=== PATIENT | male | born 1965 | race American Indian/Alaskan Native ===

== ENCOUNTER 2016-11-17 18:03 | Emergency (ER) | payer MEDICARE ==
--- NOTE | 2016-11-17 18:20 | Emergency Department Report ---
Stated Complaint: LEFT LEG NUMBNESS Time Seen by Provider: 11/17/16 18:18 - HPI History of Present Illness: PT c/o Left leg pain x 3 days. PT's bp has also been elevated. PT has hx of clot. PT states he went to yesterday and he was told to go to ED for eval of leg pain. - ROS Review of Systems: - chest pain - sob - Exam Vital Signs: Vital Signs 11/17/16 18:17 Temperature 98.7 F Pulse Rate 109 H Respiratory 18 Rate Blood Pressure 175/117 O2 Sat by Pulse 98 Oximetry Physical Exam: PT ambulatory with limp in triage no focal weakness noted. MSE screening note: Focused history and physical exam performed. Due to findings the following was ordered: labs ED Disposition for MSE Condition: Stable
[2016-11-17 19:58] LABS: Eosinophils % (Auto) 0.5 % (0.0-4.3); Hematocrit 45.6 % (35.5-45.6); Hemoglobin 15.5 gm/dl (11.8-15.2); Mean Corpuscular HGB Conc 34 % (32-34); Mean Corpuscular Hemoglobin 31 pg (28-32); Mean Corpuscular Volume 91 fl (84-94); Platelet Count 261 K/mm3 (140-440); Red Cell Distribution Width 14.6 % (13.2-15.2); White Blood Count 6.6 K/mm3 (4.5-11.0)
[2016-11-17 20:08] LABS: INR 0.91 (0.87-1.13)
[2016-11-17 20:09] LABS: Partial Thromboplastin Time 30.6 Sec. (24.2-36.6)
[2016-11-17 20:18] LABS: Alanine Aminotransferase 38 units/L (7-56); Albumin 4.4 g/dL (3.9-5); Alkaline Phosphatase 73 units/L (35-129); Anion Gap 21 mmol/L; Blood Urea Nitrogen 16 mg/dL (9-20); Calcium 9.5 mg/dL (8.4-10.2); Carbon Dioxide 21 mmol/L (22-30); Chloride 100.3 mmol/L (98-107); Creatine Kinase 143 units/L (55-170); Glucose 102 mg/dL (75-100); Potassium 3.9 mmol/L (3.6-5.0); Sodium 138 mmol/L (137-145); Total Protein 8.7 g/dL (6.3-8.2)
[2016-11-17 23:11] VITALS: BP 171/116
== END 2016-11-17 23:40 | disposition left against medical advice (07) ==
LOC: ED 18:03
DX: M79.605 Pain in left leg (principal); R20.0 Anesthesia of skin; Z53.21 Procedure and treatment not carried out due to patient leaving prior to being seen by health care provider
CPT/HCPCS: 36415; 80053; 82550; 84484; 85025; 85610; 85730; 93005; 93010

== ENCOUNTER 2016-12-09 08:10 | Emergency (ER) | payer SELFPAY ==
[2016-12-09 09:05] LABS: Basophils % (Auto) 1.4 % (0.0-1.8); Eosinophils % (Auto) 1.2 % (0.0-4.3); Hematocrit 40.5 % (35.5-45.6); Hemoglobin 13.7 gm/dl (11.8-15.2); Mean Corpuscular HGB Conc 34 % (32-34); Mean Corpuscular Hemoglobin 31 pg (28-32); Mean Corpuscular Volume 92 fl (84-94); Platelet Count 224 K/mm3 (140-440); White Blood Count 5.6 K/mm3 (4.5-11.0)
[2016-12-09 09:20] LABS: Anion Gap 18 mmol/L; BUN/Creatinine Ratio 19; Blood Urea Nitrogen 15 mg/dL (9-20); Calcium 8.8 mg/dL (8.4-10.2); Carbon Dioxide 22 mmol/L (22-30); Chloride 105.2 mmol/L (98-107); Glucose 107 mg/dL (75-100); Sodium 141 mmol/L (137-145)
[2016-12-09 09:30] LABS: INR 0.87 (0.87-1.13)
[2016-12-09] MEDS ORDERED: MORPHINE IV ONE (10:35)
[2016-12-09] MEDS ORDERED: CATAPRES PO ONE (10:35)
[2016-12-09] MEDS ORDERED: ZOFRAN IV ONE (10:35)
--- NOTE | 2016-12-09 10:41 | Emergency Department Report ---
HPI - General Chief Complaint: High BP Time Seen by Provider: 12/09/16 10:17 - HPI HPI: Room 1 The patient is a 51-year-old male presenting with a chief complaint of headache. Patient states for the past 2 days he's had a constant diffuse headache. The patient states this morning at 01:00 he checked his blood pressure at home and felt systolic of greater than 200. The patient states he went to [facility] his blood pressure was found to be 183 systolic. The patient states he took 0.2 clonidine at approximately 02:00 this morning but his headache persists. Patient gives his headache score greater than 10/10. Patient denies any preceding trauma Location: Head Duration: 2 Days Quality: Aching Severity: Greater than 10/10 Modifying factors: [see above] Context: [see above] Mode of transportation: [not driving] ED Past Medical Hx - Past Medical History Previous Medical History?: Yes Hx Hypertension: Yes Hx Heart Attack/AMI: Yes (2011 [place] post dvt secondary to Factor V leiden def. No symptoms since stent) Hx Deep Vein Thrombosis: Yes (legs) Hx Pulmonary Embolism: Yes (05/2011) Hx Kidney Stones: Yes (2001) Additional medical history: Factor V Leiden - Surgical History Hx Coronary Stent: Yes (x3) Hx Cholecystectomy: Yes Additional Surgical History: Left external iliac pain. angioplasty and stent 3. IVF filter placed and removed. - Family History Family history: no significant - Social History Smoking Status: Former Smoker Substance Use Type: None - Medications Home Medications: Home Medications Medication Instructions Recorded Confirmed Last Taken Type Aspirin [Aspirin BABY CHEW TAB] 81 mg PO QDAY #30 tab.chew 12/04/12 09/22/15 Rx Hydrochlorothiazide [HCTZ] 12.5 mg PO QDAY #30 tablet 01/23/15 09/22/15 Rx Rosuvastatin (Nf) [Crestor] 10 mg PO QHS #30 tablet 01/23/15 09/22/15 09/21/15 Rx Zolpidem [Ambien] 5 mg PO QHS PRN #15 tablet 01/23/15 09/22/15 09/21/15 Rx Famotidine [Pepcid] 20 mg PO BID PRN 05/07/15 09/22/15 Unknown History ALPRAZolam [Xanax TAB] 1 mg PO TID PRN 09/22/15 09/22/15 Unknown History Olmesartan/Amlodipin/Hcthiazid 1 each PO QDAY 09/22/15 09/22/15 09/21/15 History [Tribenzor 40-5-12.5 mg] Rivaroxaban [Xarelto] 20 mg PO QDAY #30 tablet 09/24/15 Unknown Rx Rivaroxaban [Xarelto] 20 mg PO QDDIAB #30 tablet 09/24/15 Unknown Rx HYDROcodone/APAP 5-325 [[place] 1 each PO Q6HR PRN #12 tablet 01/19/16 Unknown Rx 5/325] Ibuprofen [Motrin 800 MG tab] 800 mg PO Q8HR PRN #30 tablet 01/19/16 Unknown Rx methOCARBAMOL [Robaxin TAB] 500 mg PO BID #20 tab 01/19/16 Unknown Rx Butalb/Acetamin/Caff 50-325-40 2 tab PO Q8HR PRN #20 tablet 12/09/16 Unknown Rx [Fioricet] ED Review of Systems ROS: Stated complaint: elevated blood pressure Other details as noted in HPI Comment: All other systems reviewed and negative Constitutional: denies: chills, fever Eyes: denies: eye pain, eye discharge, vision change ENT: denies: ear pain, throat pain Respiratory: denies: cough, shortness of breath, wheezing Cardiovascular: denies: chest pain, palpitations Endocrine: no symptoms reported Gastrointestinal: denies: abdominal pain, nausea, diarrhea Genitourinary: denies: urgency, dysuria Musculoskeletal: denies: back pain, joint swelling, arthralgia Skin: denies: rash, lesions Neurological: headache Psychiatric: denies: anxiety, depression Hematological/Lymphatic: denies: easy bleeding, easy bruising Physical Exam - Physical Exam Vital Signs: Vital Signs 12/09/16 12/09/16 12/09/16 08:13 08:40 08:55 Temperature 98.4 F Pulse Rate 95 H 76 Respiratory 18 11 L 16 Rate Blood Pressure 181/111 O2 Sat by Pulse 99 99 Oximetry 12/09/16 12/09/16 12/09/16 08:56 09:01 09:30 Temperature Pulse Rate 85 88 81 Respiratory 18 21 Rate Blood Pressure 162/100 150/102 O2 Sat by Pulse 97 98 Oximetry 12/09/16 10:00 Temperature Pulse Rate 81 Respiratory 13 Rate Blood Pressure 153/98 O2 Sat by Pulse 95 Oximetry Physical Exam: GENERAL: The patient is well-developed well-nourished male lying on stretcher not appearing to be in acute distress. [] HEENT: Normocephalic. Atraumatic. Extraocular motions are intact. Patient has moist mucous membranes. NECK: Supple. No meningitic signs are noted. Trachea midline CHEST/LUNGS: Clear to auscultation. There is no respiratory distress noted. HEART/CARDIOVASCULAR: Regular. There is no tachycardia. There is no gallop rub or murmur. ABDOMEN: Abdomen is soft, nontender. Patient has normal bowel sounds. There is no abdominal distention. SKIN: There is no rash. There is no edema. There is no diaphoresis. NEURO: The patient is awake, alert, and oriented. The patient is cooperative. The patient has no focal neurologic deficits. The patient has normal speech. Cranial nerves II through XII grossly intact, no drift MUSCULOSKELETAL: There is no evidence of acute injury. ED Course Vital Signs 12/09/16 12/09/16 12/09/16 08:13 08:40 08:55 Temperature 98.4 F Pulse Rate 95 H 76 Respiratory 18 11 L 16 Rate Blood Pressure 181/111 O2 Sat by Pulse 99 99 Oximetry 12/09/16 12/09/16 12/09/16 08:56 09:01 09:30 Temperature Pulse Rate 85 88 81 Respiratory 18 21 Rate Blood Pressure 162/100 150/102 O2 Sat by Pulse 97 98 Oximetry 12/09/16 10:00 Temperature Pulse Rate 81 Respiratory 13 Rate Blood Pressure 153/98 O2 Sat by Pulse 95 Oximetry ED Medical Decision Making - Lab Data Result diagrams: 12/09/16 08:48 12/09/16 08:48 Laboratory Tests 12/09/16 12/09/16 12/09/16 08:48 08:48 08:48 WBC 5.6 RBC 4.40 Hgb 13.7 Hct 40.5 MCV 92 MCH 31 MCHC 34 RDW 15.0 Plt Count 224 Lymph % (Auto) 30.1 [place] % (Auto) 6.8 Eos % (Auto) 1.2 Baso % (Auto) 1.4 Lymph # 1.7 [place] # 0.4 Eos # 0.1 Baso # 0.1 Seg Neutrophils % 60.5 Seg Neutrophils # 3.4 PT 12.3 INR 0.87 APTT 28.0 Sodium 141 Potassium 4.0 Chloride 105.2 Carbon Dioxide 22 Anion Gap 18 BUN 15 Creatinine 0.8 Estimated GFR > 60 BUN/Creatinine Ratio 19 Glucose 107 H Calcium 8.8 Troponin T < 0.010 - EKG Data -: EKG Interpreted by Me EKG shows normal: sinus rhythm Rate: normal - EKG Data When compared to previous EKG there are: no significant change Interpretation: unchanged when compared t (09/22/2015) - Radiology Data Radiology results: report reviewed (CT head), image reviewed (CT head) CT head (read by radiologist)-no acute intracranial abnormality - Differential Diagnosis hypertensive emergency, ICH, uncontrolled hypertension, headache Critical care attestation.: If time is entered above; I have spent that time in minutes in the direct care of this critically ill patient, excluding procedure time. ED Disposition Clinical Impression: Headache, Hypertension Disposition: DC- TO HOME OR SELFCARE Is pt being admited?: No Does the pt Need Aspirin: No Condition: Stable Instructions: Hypertension (ED) Additional Instructions: Return to the emergency department immediately should you develop worsening symptoms, fever, inability to tolerate food or liquid or any other concerns. Prescriptions: Butalb/Acetamin/Caff 50-325-40 [Fioricet] 2 tab PO Q8HR PRN #20 tablet PRN Reason: Headache Referrals: PRIMARY CARE, [Primary Care Provider] - 3-5 Days ROZ MCCULLOUGH MD [Staff Physician] - 2-3 Days Time of Disposition: 12:35
--- NOTE | 2016-12-09 12:16 | Cat Scan Report ---
CT scan of head without IV contrast: History: Hypertension, headache. Findings: Ventricles are normal in size and midline in location. No evidence of acute ischemia, hemorrhage or mass. No extra-axial fluid collection. Normal brainstem and cerebellum. Normal sinuses and mastoid air cells. Impression: No acute intracranial abnormality.
[2016-12-09 12:56] VITALS: BP 164/100
== END 2016-12-09 12:55 | disposition home or self-care (01) ==
LOC: ED 08:10
DX: R51 Headache (principal); I10 Essential (primary) hypertension; I25.2 Old myocardial infarction; I82.409 Acute embolism and thrombosis of unspecified deep veins of unspecified lower extremity; I26.99 Other pulmonary embolism without acute cor pulmonale; Z87.891 Personal history of nicotine dependence; Z79.82 Long term (current) use of aspirin
CPT/HCPCS: 36415; 70450; 80048; 84484; 85025; 85610; 85730; 93005; 93010; 96374; 96375; 99284; J2270; J2405

== ENCOUNTER 2018-08-19 06:59 | Observation (INO) | payer OTHER ==
[2018-08-19] MEDS ORDERED: ASPIRIN PO ONE (07:17)
[2018-08-19 07:43] LABS: Basophils % (Auto) 0.8 % (0.0-1.8); Eosinophils # (Auto) 0.1 K/mm3 (0.0-0.4); Eosinophils % (Auto) 1.2 % (0.0-4.3); Hematocrit 43.4 % (35.5-45.6); Lymphocytes % (Auto) 33.8 % (13.4-35.0); Mean Corpuscular HGB Conc 35 % (32-34); Mean Corpuscular Volume 93 fl (84-94); Monocytes # (Auto) 0.4 K/mm3 (0.0-0.8); Monocytes % (Auto) 6.8 % (0.0-7.3); Platelet Count 265 K/mm3 (140-440); Red Blood Count 4.64 M/mm3 (3.65-5.03); Red Cell Distribution Width 14.9 % (13.2-15.2)
[2018-08-19] MEDS ORDERED: NITROSTAT SL ONE (07:47)
--- NOTE | 2018-08-19 07:47 | Emergency Department Report ---
ED Chest Pain HPI - General Chief Complaint: Chest Pain Stated Complaint: CHEST PAIN Time Seen by Provider: 08/19/18 07:44 Source: patient Mode of arrival: Ambulatory Limitations: No Limitations - History of Present Illness Initial Comments: She is a 53-year-old male that presents emergency room with complaints of chest pain 3 days. Patient states the chest pain is 10 out of 10. Patient states that his left chest and radiating to his left arm. Patient states he had diaphoresis as well. Patient denies shortness of breath. Patient states he has had stents in the past and CAD. Patient denies headache. Patient denies syncope. She states his chest pain is worsening. Patient states the chest pain is better with rest and worse with exertion. MD Complaint: chest pain -: Sudden Onset: during rest Pain Location: substernal, left chest Pain Radiation: LUE Severity: severe Severity scale (0 -10): 10 Quality: sharp Consistency: constant Improves With: rest Worsens With: exertion re: diaphoresis. denies: nausea, vomting, dyspnea, sense of impending doom Other Symptoms: denies: cough, fever, syncope, rash, acid taste in mouth, leg swelling, palpitations, burping Treatments Prior to Arrival: aspirin Aspirin use within the Past 7 Days: (1) Yes - Related Data On Oral Contraceptives: No Home Medications Medication Instructions Recorded Confirmed Last Taken Olmesartan/Amlodipin/Hcthiazid 1 each PO QDAY 09/22/15 08/19/18 09/21/15 [Tribenzor 40-5-12.5 mg] Famotidine [Pepcid] 40 mg PO QDAY 08/19/18 08/19/18 Unknown cloNIDine [Catapres] 0.1 mg PO QDAY 08/19/18 08/19/18 Unknown Previous Rx's Medication Instructions Recorded Last Taken Type Aspirin [Aspirin BABY CHEW TAB] 81 mg PO QDAY #30 tab.chew 12/04/12 09/21/15 Rx Rosuvastatin (Nf) [Crestor] 10 mg PO QHS #30 tablet 01/23/15 09/21/15 Rx Rivaroxaban [Xarelto] 20 mg PO QDDIAB #30 tablet 09/24/15 Unknown Rx Butalb/Acetamin/Caff 50-325-40 2 tab PO Q8HR PRN #20 tablet 12/09/16 Unknown Rx [Fioricet] Allergies Allergy/AdvReac Type Severity Reaction Status Date / Time doxycycline Allergy Swelling Verified 11/17/16 18:18 hydromorphone HCl Allergy Swelling Verified 11/17/16 18:18 [From Dilaudid] levofloxacin [From Levaquin] Allergy Swelling Verified 11/17/16 18:18 Sulfa (Sulfonamide Allergy Swelling Verified 11/17/16 18:18 Antibiotics) warfarin sodium Allergy Swelling Verified 11/17/16 18:18 [From Coumadin] Heart Score - HEART Score History: Highly suspicious EKG: Normal Age: 45-65 Risk factors: > 3 risk factors or hx of atherosclerotic disease Troponin: < normal limit HEART Score: 5 ED Review of Systems ROS: Stated complaint: CHEST PAIN Other details as noted in HPI Constitutional: diaphoresis. denies: chills, fever Eyes: denies: eye pain, eye discharge, vision change ENT: denies: ear pain, throat pain Respiratory: denies: cough, shortness of breath, wheezing Cardiovascular: chest pain. 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 No symptoms since stent) Hx Congestive Heart Failure: No Hx Diabetes: No Hx Deep Vein Thrombosis: Yes (legs) Hx Pulmonary Embolism: Yes (05/2011) Hx Liver Disease: No Hx Sickle Cell Disease: No Hx Arthritis: No Hx Seizures: No Hx Kidney Stones: Yes (2001) Hx Asthma: No Hx COPD: No Hx HIV: No Additional medical history: Factor V Leiden - Surgical History Past Surgical History?: Yes Hx Coronary Stent: Yes (x3) Hx Pacemaker: No Hx Internal Defibrillator: No Hx Cholecystectomy: Yes Additional Surgical History: Left external iliac pain. angioplasty and stent 3. IVF filter placed and removed. - Family History Family history: no significant - Social History Smoking Status: Former Smoker Substance Use Type: None - Medications Home Medications: Home Medications Medication Instructions Recorded Confirmed Last Taken Type Aspirin [Aspirin BABY CHEW TAB] 81 mg PO QDAY #30 tab.chew 12/04/12 08/19/18 09/21/15 Rx Rosuvastatin (Nf) [Crestor] 10 mg PO QHS #30 tablet 01/23/15 08/19/18 09/21/15 Rx Olmesartan/Amlodipin/Hcthiazid 1 each PO QDAY 09/22/15 08/19/18 09/21/15 History [Tribenzor 40-5-12.5 mg] Rivaroxaban [Xarelto] 20 mg PO QDDIAB #30 tablet 09/24/15 08/19/18 Unknown Rx Butalb/Acetamin/Caff 50-325-40 2 tab PO Q8HR PRN #20 tablet 12/09/16 08/19/18 Unknown Rx [Fioricet] Famotidine [Pepcid] 40 mg PO QDAY 08/19/18 08/19/18 Unknown History cloNIDine [Catapres] 0.1 mg PO QDAY 08/19/18 08/19/18 Unknown History ED Physical Exam - General Limitations: No Limitations General appearance: alert, in no apparent distress - Head Head exam: Present: atraumatic, normocephalic - Eye Eye exam: Present: normal appearance - ENT ENT exam: Present: mucous membranes moist - Neck Neck exam: Present: normal inspection - Respiratory Respiratory exam: Present: normal lung sounds bilaterally. Absent: respiratory distress, wheezes - Cardiovascular Cardiovascular Exam: Present: regular rate, normal rhythm. Absent: systolic murmur, diastolic murmur, rubs, gallop - GI/Abdominal GI/Abdominal exam: Present: soft, normal bowel sounds. Absent: distended, tenderness - Rectal Rectal exam: Present: deferred - Extremities Exam Extremities exam: Present: normal inspection - Back Exam Back exam: Present: normal inspection - Neurological Exam Neurological exam: Present: alert, oriented X3 - Psychiatric Psychiatric exam: Present: normal affect, normal mood - Skin Skin exam: Present: warm, dry, intact, normal color. Absent: rash ED Course Vital Signs 08/19/18 08/19/18 08/19/18 07:17 07:40 07:45 Temperature 98.1 F Pulse Rate 94 H 75 70 Respiratory 18 15 14 Rate Blood Pressure 172/109 Blood Pressure 152/118 [Left] O2 Sat by Pulse 97 97 Oximetry 08/19/18 08/19/18 08/19/18 07:54 07:55 08:00 Temperature Pulse Rate 89 82 Respiratory 15 15 Rate Blood Pressure 170/108 Blood Pressure [Left] O2 Sat by Pulse 97 96 Oximetry 08/19/18 08/19/18 08/19/18 08:15 08:31 08:45 Temperature 98.1 F Pulse Rate 75 79 71 Respiratory 22 17 19 Rate Blood Pressure 144/91 134/103 137/95 Blood Pressure [Left] O2 Sat by Pulse 96 95 96 Oximetry 08/19/18 08/19/18 08/19/18 09:00 09:31 09:45 Temperature Pulse Rate 68 66 64 Respiratory 14 13 17 Rate Blood Pressure 145/93 133/90 137/92 Blood Pressure [Left] O2 Sat by Pulse 96 97 100 Oximetry 08/19/18 08/19/18 08/19/18 09:58 10:00 10:11 Temperature Pulse Rate 68 66 74 Respiratory 15 17 Rate Blood Pressure 137/97 134/91 134/91 Blood Pressure [Left] O2 Sat by Pulse 99 99 Oximetry 08/19/18 10:42 Temperature Pulse Rate 78 Respiratory Rate Blood Pressure Blood Pressure [Left] O2 Sat by Pulse Oximetry - Reevaluation(s) Reevaluation #1: Patient H his pain is significantly better. Patient states the pain is now a 2 out of 10. Patient are to have morphine, aspirin and nitroglycerin. Discussed all results with patient. Patient will be admitted to the hospitalist service. Patient agrees to plan of care. 08/19/18 09:01 - Consultations Consultation #1: Hospitalist consulted for admission. Hospitalist to admit patient. Hospitalist to assume care patient. 08/19/18 09:09 ABI score - Abi Score Age > 65: (0) No Aspirin use within the Past 7 Days: (0) No 3 or more CAD Risk Factors: (1) Yes 2 or more Angina events in past 24 hrs: (0) No Known CAD with more than 50% Stenosis: (1) Yes Elevated Cardiac Markers: (0) No ST Deviation Greater than 0.5mm: (0) No ABI Score: 2 ED Medical Decision Making - Lab Data Result diagrams: 08/19/18 07:22 08/19/18 07:22 - EKG Data -: EKG Interpreted by Me EKG shows normal: sinus rhythm, axis, intervals, QRS complexes, ST-T waves Rate: normal - Radiology Data Radiology results: report reviewed, image reviewed interpreted by me: Negative chest x-ray AP CHEST: HISTORY: chest pain AP view of the chest demonstrates a normal mediastinal and cardiac contour with clear lungs and normal bony and soft tissue structures. Minor linear scarring in the lingula is noted. IMPRESSION: Unremarkable AP chest. - Medical Decision Making Patient is a 53-year-old male up since emergency room with chest pain. Patient has significant CAD history with stents. Patient was admitted to the hospitalist service for further evaluation treatment and rule out ACS. Patient's initial cardiac and laboratory workup is negative. They should require multiple medications to decrease his chest pain. - Differential Diagnosis ACS. Chest pain. CAD. Critical Care Time: Yes Critical care attestation.: If time is entered above; I have spent that time in minutes in the direct care of this critically ill patient, excluding procedure time. Critical Care Time: 35 minutes ED Disposition Clinical Impression: Chest pain Qualifiers: Chest pain type: unspecified Qualified Code(s): R07.9 - Chest pain, unspecified Coronary artery disease Qualifiers: Coronary Disease-Associated Artery/Lesion type: [place] artery [place] vs. transplanted heart: [place] heart Associated angina: angina presence unspecified Qualified Code(s): I25.10 - Atherosclerotic heart disease of [place] coronary artery without angina pectoris Hypertension Qualifiers: Hypertension type: essential hypertension Qualified Code(s): I10 - Essential (primary) hypertension Disposition: 09 OP ADMIT IP TO THIS HOSP Is pt being admited?: Yes Does the pt Need Aspirin: No Condition: Critical Time of Disposition: 09:13
[2018-08-19] MEDS ORDERED: MORPHINE IV ONE (07:48)
[2018-08-19] MEDS ORDERED: ZOFRAN IV ONE (07:48)
[2018-08-19 07:52] LABS: BUN/Creatinine Ratio 12; Blood Urea Nitrogen 12 mg/dL (9-20); Calcium 9.1 mg/dL (8.4-10.2); Hemolysis Index 8
[2018-08-19 07:58] LABS: Alanine Aminotransferase 14 units/L (7-56); Albumin 4.1 g/dL (3.9-5)
[2018-08-19 08:08] LABS: Bilirubin,Direct < 0.2 mg/dL (0-0.2)
--- NOTE | 2018-08-19 08:25 | XRay Report ---
AP CHEST: HISTORY: chest pain AP view of the chest demonstrates a normal mediastinal and cardiac contour with clear lungs and normal bony and soft tissue structures. Minor linear scarring in the lingula is noted. IMPRESSION: Unremarkable AP chest.
[2018-08-19] MEDS ORDERED: LOPRESSOR IV ONE (09:15)
--- NOTE | 2018-08-19 09:58 | History and Physical Report ---
History of Present Illness Date of examination: 08/19/18 Date of admission: 08/19/18 Chief complaint: Chest pain History of present illness: 53-year-old -[place]in[place] male patient with significant past medical history of coronary artery disease status post PCI , pulmonary embolism , factor V [place] deficiency on chronic anticoagulation , presented to the emergency room visit chest pain off 2 days duration intermittent , radiating to the left arm , associated with intermittent diaphoresis patient grades his pain between 8-10 over 10, at the time of my evaluation patient grades his pain around 5-6 Patient follows that nutrient management specialist at [facility] Patient denies nausea or vomiting or abdominal pain Denies headache or dizziness Patient denies shortness of breath or cough Past History Past Medical History: CAD, hypertension, hyperlipidemia, pulmonary embolism, other (factor V deficiency) Past Surgical History: Other (coronary artery disease status post PCI) Social history: other (denies recreational drug use). denies: smoking, alcohol abuse Family history: hypertension Medications and Allergies Allergies Allergy/AdvReac Type Severity Reaction Status Date / Time doxycycline Allergy Swelling Verified 11/17/16 18:18 hydromorphone HCl Allergy Swelling Verified 11/17/16 18:18 [From Dilaudid] levofloxacin [From Levaquin] Allergy Swelling Verified 11/17/16 18:18 Sulfa (Sulfonamide Allergy Swelling Verified 11/17/16 18:18 Antibiotics) warfarin sodium Allergy Swelling Verified 11/17/16 18:18 [From Coumadin] Home Medications Medication Instructions Recorded Confirmed Last Taken Type Aspirin [Aspirin BABY CHEW TAB] 81 mg PO QDAY #30 tab.chew 12/04/12 08/19/18 09/21/15 Rx Rosuvastatin (Nf) [Crestor] 10 mg PO QHS #30 tablet 01/23/15 08/19/18 09/21/15 Rx Olmesartan/Amlodipin/Hcthiazid 1 each PO QDAY 09/22/15 08/19/18 09/21/15 History [Tribenzor 40-5-12.5 mg] Rivaroxaban [Xarelto] 20 mg PO QDDIAB #30 tablet 09/24/15 08/19/18 Unknown Rx Butalb/Acetamin/Caff 50-325-40 2 tab PO Q8HR PRN #20 tablet 12/09/16 08/19/18 Unknown Rx [Fioricet] Famotidine [Pepcid] 40 mg PO QDAY 08/19/18 08/19/18 Unknown History cloNIDine [Catapres] 0.1 mg PO QDAY 08/19/18 08/19/18 Unknown History Review of Systems Constitutional: no weight loss, no weight gain, no fatigue, no weakness Ears, nose, mouth and throat: no nasal congestion, no nasal discharge Cardiovascular: chest pain, other (diaphoresis), no palpitations, no lightheadedness, no shortness of breath Respiratory: no cough, no shortness of breath Gastrointestinal: no abdominal pain, no nausea, no vomiting Genitourinary Male: no dysuria, no hematuria Musculoskeletal: no myalgias, no arthritis Integumentary: no rash, no lesions Neurological: no numbness, no tingling, no seizures Psychiatric: no anxiety, no depression Endocrine: no cold intolerance, no heat intolerance Hematologic/Lymphatic: no easy bruising, no easy bleeding Allergic/Immunologic: no urticaria, no allergic rhinitis Exam - Constitutional Vitals: Temp Pulse Resp BP Pulse Ox 98.1 F 82 15 170/108 96 08/19/18 08:15 08/19/18 08:00 08/19/18 08:00 08/19/18 08:00 08/19/18 08:00 General appearance: Present: mild distress, well-nourished - EENT Eyes: Present: PERRL, EOM intact - Neck Neck: Present: supple, normal ROM - Respiratory Respiratory effort: normal Respiratory: bilateral: diminished, negative: rales, rhonchi, wheezing - Cardiovascular Rhythm: regular Heart Sounds: Present: S1 & S2 - Extremities Extremities: no ischemia, No edema - Abdominal General gastrointestinal: Present: soft, non-tender, non-distended, normal bowel sounds - Integumentary Integumentary: Present: clear, warm - Musculoskeletal Musculoskeletal: strength equal bilaterally - Psychiatric Psychiatric: appropriate mood/affect, cooperative - Neurologic Neurologic: CNII-XII intact, moves all extremities Results - Labs CBC & Chem 7: 08/19/18 07:22 08/19/18 07:22 Labs: Abnormal lab results 08/19/18 08/19/18 Range/Units 07:22 07:22 MCHC 35 H (32-34) % Glucose 111 H (75-100) mg/dL Assessment and Plan --Chest pain ; rule out acute coronary syndrome Procedure cardiac enzymes, EKG, echocardiogram Continue current cardiac medications Cardiology evaluation --History of coronary artery disease status post PCI; Continue current cardiac medications, cardiology consulted --History of PE/factor V [place]; continue Xeralto --Hypertension; moderate control Resume home antihypertensives and when necessary meds --DVT prophylaxis; patient is already on several to Monitor closely and adjust the management as needed
[2018-08-19] MEDS: CATAPRES PO SCH (10:11)
[2018-08-19 10:56] LABS: Chol/HDL Ratio 6.36 %
[2018-08-19] MEDS ORDERED: NITROSTAT SL PRN (11:34)
[2018-08-19] MEDS: MORPHINE IV PRN ×2 (12:01→21:27)
[2018-08-19] MEDS: APRESOLINE IV PRN ×2 (12:01→19:51)
[2018-08-19] MEDS: FIORICET PO PRN (19:52)
[2018-08-19] MEDS: LOPRESSOR PO SCH (21:28)
[2018-08-19] MEDS: PEPCID PO SCH (21:28)
[2018-08-19] MEDS ORDERED: NON-FORMULARY (Rosuvastatin (Nf) 10 MG) PO SCH (22:00)
[2018-08-20] MEDS: APRESOLINE IV PRN (00:26)
[2018-08-20] MEDS: MORPHINE IV PRN (01:37)
[2018-08-20] MEDS ORDERED: XARELTO PO SCH (08:00)
--- NOTE | 2018-08-20 09:12 | Consultation ---
History of Present Illness Consult date: 08/20/18 Consult reason: chest pain History of present illness: This is a 53-year old male that gives a history of coronary artery disease, hypertension, Factor V Leiden deficiency on chronic anticoagulation with Xarelto who presented to this hospital with chest pain, admitted with uncontrolled hypertension. Blood pressure 172/109 on presentation. Patient admits has been out of his Chlorthalidone for several days. Patient is known to [facility] as is followed by Dr Maciel Tarango. Patient describes chest pain as pain that travels to his back associated with diaphoresis and palpitaions. Patient reports his latest cardiac workup was done 3-4 months ago while hospitalized at [facility]. Patient states he has a normal stress thallium test. Past History Past Medical History: CAD, hypertension, hyperlipidemia, pulmonary embolism, other (factor V deficiency) Past Surgical History: Other (coronary artery disease status post PCI) Social history: other (denies recreational drug use). denies: smoking, alcohol abuse Family history: hypertension Medications and Allergies Allergies Allergy/AdvReac Type Severity Reaction Status Date / Time doxycycline Allergy Swelling Verified 11/17/16 18:18 hydromorphone HCl Allergy Swelling Verified 11/17/16 18:18 [From Dilaudid] levofloxacin [From Levaquin] Allergy Swelling Verified 11/17/16 18:18 Sulfa (Sulfonamide Allergy Swelling Verified 11/17/16 18:18 Antibiotics) warfarin sodium Allergy Swelling Verified 11/17/16 18:18 [From Coumadin] Home Medications Medication Instructions Recorded Confirmed Last Taken Type Aspirin [Aspirin BABY CHEW TAB] 81 mg PO QDAY #30 tab.chew 12/04/12 08/19/18 09/21/15 Rx Rosuvastatin (Nf) [Crestor] 10 mg PO QHS #30 tablet 01/23/15 08/19/18 09/21/15 Rx Olmesartan/Amlodipin/Hcthiazid 1 each PO QDAY 09/22/15 08/19/18 09/21/15 History [Tribenzor 40-5-12.5 mg] Rivaroxaban [Xarelto] 20 mg PO QDDIAB #30 tablet 09/24/15 08/19/18 Unknown Rx Butalb/Acetamin/Caff 50-325-40 2 tab PO Q8HR PRN #20 tablet 12/09/16 08/19/18 Unknown Rx [Fioricet] Famotidine [Pepcid] 40 mg PO QDAY 08/19/18 08/19/18 Unknown History cloNIDine [Catapres] 0.1 mg PO QDAY 08/19/18 08/19/18 Unknown History Active Meds: Active Medications Acetaminophen/Butalbital/Caffeine (Fioricet) 2 tab PO Q8H PRN PRN Reason: Headache Last Admin: 08/19/18 19:52 Dose: 2 tab Documented by: Amlodipine Besylate (Norvasc) 5 mg PO QDAY [facility] Aspirin (Baby Aspirin) 81 mg PO QDAY [facility] Atorvastatin Calcium (Lipitor) 20 mg PO QHS [facility] Last Admin: 08/19/18 21:28 Dose: 20 mg Documented by: Clonidine HCl (Catapres) 0.1 mg PO QDAY [facility] Last Admin: 08/19/18 10:11 Dose: 0.1 mg Documented by: Famotidine (Pepcid) 20 mg PO BID [facility] Last Admin: 08/19/18 21:28 Dose: 20 mg Documented by: Hydralazine HCl (Apresoline) 10 mg IV Q4H PRN PRN Reason: Hypertension Last Admin: 08/20/18 00:26 Dose: 10 mg Documented by: Hydrochlorothiazide (Hctz) 12.5 mg PO QDAY [facility] Lisinopril (Zestril) 2.5 mg PO QDAY [facility] Losartan Potassium (Cozaar) 50 mg PO QDAY [facility] Metoprolol Tartrate (Lopressor) 12.5 mg PO BID [facility] Last Admin: 08/19/18 21:28 Dose: 12.5 mg Documented by: Morphine Sulfate (Morphine) 2 mg IV Q4H PRN PRN Reason: Pain, Moderate (4-6) Last Admin: 08/20/18 01:37 Dose: 2 mg Documented by: Nitroglycerin (Nitrostat) 0.4 mg SL .Q5MIN PRN PRN Reason: Chest Pain Rivaroxaban (Xarelto) 20 mg PO QDDIAB [facility]; Protocol Physical Examination Vital Signs Temp Pulse Resp BP Pulse Ox 98.1 F 94 H 18 152/118 97 08/19/18 07:17 08/19/18 07:17 08/19/18 07:17 08/19/18 07:17 08/19/18 07:17 General appearance: no acute distress HEENT: Positive: PERRL Neck: Positive: trachea midline Cardiac: Positive: Reg Rate and Rhythm Lungs: Positive: Decreased Breath Sounds Neuro: Positive: Grossly Intact Results 08/19/18 07:22 08/19/18 07:22 Lipids 08/19/18 Range/Units 07:22 Triglycerides 179 H (2-149) mg/dL Cholesterol 191 (50-199) mg/dL HDL Cholesterol 30 L (40-59) mg/dL Cholesterol/HDL Ratio 6.36 % Assessment and Plan Uncontrolled Hypertension s/t to noncompliance with medications Chest pain Hx of CAD Factor V Leiden on Xarelto as an outpatient. Recommendations: Obtain cardiac records for [facility] for review. Chest CTA for rule out dissection. Further cardiac evaluation depends on clinical course.
[2018-08-20] MEDS ORDERED: BABY ASPIRIN PO SCH (10:00)
[2018-08-20] MEDS ORDERED: AMLODIPIN PO SCH (10:00)
[2018-08-20] MEDS ORDERED: HCTHIAZID PO SCH (10:00)
[2018-08-20] MEDS ORDERED: HCTZ PO SCH (10:00)
[2018-08-20] MEDS ORDERED: NORVASC PO SCH (10:00)
[2018-08-20] MEDS ORDERED: OLMESARTAN PO SCH (10:00)
[2018-08-20] MEDS ORDERED: COZAAR PO SCH ×2 (10:00→12:00)
[2018-08-20] MEDS ORDERED: ZESTRIL PO SCH (10:00)
[2018-08-20] MEDS: CATAPRES PO SCH (10:47)
[2018-08-20] MEDS: LOPRESSOR PO SCH (10:48)
[2018-08-20] MEDS: PEPCID PO SCH (10:48)
[2018-08-20] MEDS: FIORICET PO PRN (10:49)
--- NOTE | 2018-08-20 11:25 | Cat Scan Report ---
CTA CHEST: HISTORY: Chest pain, rule out dissection. COMPARISON: none. TECHNIQUE: Helical CT in 1.25mm intervals following IV contrast. Sagittal and coronal reformatted images. FINDINGS: Contrast bolus is satisfactory. The aorta shows normal caliber throughout. No evidence for aneurysm, dissection or significant atherosclerotic disease. The central pulmonary arteries are grossly clear. Thyroid gland: Normal. Tracheobronchial tree: Normal. Esophagus: Normal. Heart: Normal. Pericardium: Normal. Mediastinum: Normal. Lung Low: Normal. Pleural Spaces: Normal. Musculoskeletal: Intact. Mild bilateral gynecomastia is noted. IMPRESSION: No evidence for pulmonary embolus. No evidence for aortic dissection.
[2018-08-20] MEDS ORDERED: TENORMIN PO SCH (12:00)
[2018-08-20] MEDS ORDERED: THALITONE PO SCH (12:00)
[2018-08-20] MEDS ORDERED: ALDACTONE PO SCH (12:00)
[2018-08-20] MEDS ORDERED: CATAPRES PO PRN (12:00)
--- NOTE | 2018-08-20 13:20 | Discharge Summary ---
Providers - Providers Date of Admission: 08/19/18 09:13 Date of discharge: 08/20/18 Attending physician: ELBA REDD 08/19/18 16:38 Consult to Physician [CONS] Routine Comment: Consulting Provider: PAT CERDA Physician Instructions: Reason For Exam: Chest pain/CAD s/p PCI Primary care physician: [facility], Hospitalization Reason for admission: intermittent chest pain Condition: Stable Pertinent studies: CTA chest; however, normal caliber throughout no evidence of aneurysm dissection or significant atherosclerotic disease nor pulmonary embolism Hospital course: A pleasant 53-year-old male patient with significant past medical history of coronary artery disease status post PCI , pulmonary embolism , factor V [place]yden deficiency on chronic anticoagulation , was admitted emergency room with intermittent chest pain of 2-3 days duration , radiating to the left arm , associated with intermittent diaphoresis patient grades his pain between 8-10 over 10, at the time of my evaluation patient grades his pain around 5-6 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, symptomatically managed Evaluated by cardiology, patient had recent negative workup Patient had negative stress test in , Heart cath ; in ; which showed patent LAD stent with no significant coronary artery disease CTA chest; however, normal caliber throughout no evidence of aneurysm dissection or significant atherosclerotic disease nor pulmonary embolism Cardiology recommended to optimize medications and follow up outpatient for further evaluation and management as needed On the day of discharge patient is comfortable in no new complaints vital signs stable Physical examination is unremarkable Hemodynamically and clinically stable at discharge Discharge diagnosis: --Atypical Chest pain ; rule out acute coronary syndrome Patient had recent negative stress test in October 2017 Recent heart In June 2017; patent LAD Medications optimized --History of coronary artery disease status post PCI; Continue current cardiac medications, cardiology consulted --History of PE/factor V [place]; continue Xeralto --Hypertension; moderate control Resume home antihypertensives and when necessary meds --DVT prophylaxis; patient is already on Xeralto Disposition: - TO HOME OR SELFCARE Time spent for discharge: 32 min Core Measure Documentation - Palliative Care Palliative Care/ Comfort Measures: Not Applicable - Core Measures Any of the following diagnoses?: DVT/PE, history only - VTE Discharge Requirements Deep Vein Thrombosis/Pulmonary Embolism Present on Admission: Yes Has pt received <5 days of overlap therapy or INR<2.0: No (on Xarelto) Anticoagulant overlap therapy prescribed at discharge: No Contraindication No Overlap Therapy order at DC: Not Indicated (on Xarelto) Exam - Constitutional Vitals: Temp Pulse Resp BP Pulse Ox 97.6 F 108 H 18 162/113 96 08/20/18 12:20 08/20/18 12:33 08/20/18 12:20 08/20/18 12:33 08/20/18 12:20 General appearance: Present: no acute distress, well-nourished - EENT Eyes: Present: PERRL, EOM intact - Neck Neck: Present: supple, normal ROM - Respiratory Respiratory effort: normal Respiratory: bilateral: diminished, negative: rales, rhonchi, wheezing - Cardiovascular Rhythm: regular Heart Sounds: Present: S1 & S2 - Extremities Extremities: no ischemia, No edema - Abdominal General gastrointestinal: Present: soft, non-tender, non-distended, normal bowel sounds - Integumentary Integumentary: Present: clear, warm - Psychiatric Psychiatric: appropriate mood/affect, cooperative - Neurologic Neurologic: CNII-XII intact, moves all extremities Plan Activity: no restrictions Diet: other (cardiac diet) Additional Instructions: Advised to comply with medications and diet and follow- up visits Follow up with: ARIANA RODRIGUEZSHERWOOD MD GEOFFREY [Primary Care Provider] - 3-5 Days YADI RODRIGUEZ MD [Staff Physician] - 7 Days EDUARDO WATKINS MD [Staff Physician] - 7 Days Prescriptions: Spironolactone [Aldactone] 25 mg PO QDAY #30 tablet Losartan [Cozaar] 100 mg PO QDAY #30 tablet AtorvaSTATin [Lipitor] 20 mg PO QHS #30 tablet amLODIPine [Norvasc] 5 mg PO QDAY #30 tablet Atenolol [Tenormin] 50 mg PO QDAY #30 tablet Chlorthalidone [Thalitone] 25 mg PO QDAY #30 tablet Rivaroxaban [Xarelto] 20 mg PO QDDIAB #30 tablet
[2018-08-20 14:36] VITALS: BP 159/112
[2018-08-20 15:36] LABS: Amphetamine Screen,Urine PRESUMPTIVE NEGATIVE; Benzodiazepines Screen,Urine PRESUMPTIVE NEGATIVE; Cocaine Screen,Urine PRESUMPTIVE NEGATIVE; Methadone Screen,Urine PRESUMPTIVE NEGATIVE; Opiate Screen,Urine PRESUMPTIVE NEGATIVE
[2018-08-20 16:39] LABS: Cannabinoid Screen,Urine PRESUMPTIVE POSITIVE
== END 2018-08-20 15:46 | disposition home or self-care (01) ==
LOC: ED 06:59 → 4A 09:13
PROVIDERS: ADMIT Internal Medicine; ATTEND Internal Medicine
DX: R07.89 Other chest pain (principal); I25.10 Atherosclerotic heart disease of native coronary artery without angina pectoris; I26.99 Other pulmonary embolism without acute cor pulmonale; E78.5 Hyperlipidemia, unspecified; I25.2 Old myocardial infarction; Z79.899 Other long term (current) drug therapy; Z87.442 Personal history of urinary calculi; Z95.5 Presence of coronary angioplasty implant and graft; Z90.49 Acquired absence of other specified parts of digestive tract; Z98.890 Other specified postprocedural states
CPT/HCPCS: 36415; 71045; 71275; 80048; 80061; 80076; 80307; 82550; 82962; 83880; 84484; 85025; 93005; 93010; 96374; 96375; 96376; 99291; A9270; G0378; J0360; J2270; J2405; Q9967